=== PATIENT | male | born 1995 | race Caucasian/White ===

== ENCOUNTER 2025-01-18 12:52 | Emergency (ER) | payer OTHER, SELFPAY ==
--- NOTE | ~2025-01-18 | XR_ITS ---
CLINICAL HISTORY: CP 2 view chest x-ray Comparison: None provided Findings: The lungs are clear. Normal size heart. No acute fracture. IMPRESSION: 1. No acute findings. This document has been electronically signed by: Alessandro Gilbert MD on 01/18/2025 14:44:49
--- NOTE | 2025-01-18 12:53 | ECG_ITS ---
Test Reason : CP Blood Pressure : */* mmHG Vent. Rate : 95 BPM Atrial Rate : 95 BPM P-R Int : 144 ms QRS Dur : 78 ms QT Int : 340 ms P-R-T Axes : 70 63 42 degrees QTcB Int : 427 ms Normal sinus rhythm Normal ECG No previous ECGs available Referred By: Generic ED Physician Electronically Signed By: Juarez Jay
[2025-01-18 13:01] VITALS: BP 153/94; PULSE 98; RESP 18; TEMP 37.1; O2SAT 97; BMI 27.1
--- NOTE | 2025-01-18 13:03 | ED_ITS ---
HPI - Chest Pain General Chief Complaint: Chest Pain Stated Complaint: chest pain x 3 days Time Seen by Provider: 01/18/25 13:06 Source: patient Mode of arrival: ambulatory Limitations: no limitations History of Present Illness ED Provider: orlando mckinney np HPI narrative: Patient is a 29 year male with a reported past medical history presents to emergency department for evaluation chest pain. Is intermittent in nature described as a substernal region described as a tightness, the pain resolves after talking to someone about his feelings. admits to having increased life stressors recently and the pain comes on when he is ?thinking a lot?. Pain is nonradiating, no associated diaphoresis nausea vomiting or exacerbation on exertion. Denies past medical history/ risk factors for CAD. No recent URI symptoms, cough, neck pain, neck stiffness, dizziness or lightheadedness, headache, recent lower extremity pain or swelling, history of VTE/malignancy. Denies SI/HI. Related Data Allergies Allergy/AdvReac Type Severity Reaction Status Date / Time No Known Allergies Allergy Verified 01/18/25 13:02 Review of Systems 2 Review of Systems: Yes all other systems are reviewed and are negative [facility] Past Medical History Attestation statement: The following information was validated with the patient. Source: old records reviewed Social History Social History Smoked in Last 30 Days: No Use of substances other than those prescribed or required for medical reasons: No Advance Directives: No Advance Directives Information Provided: No Do you have a plan to hurt others: No Plan Physical Exam 2 Vital Signs: Vital Signs: Last Vital Signs Temp 98.1 F 01/18/25 14:32 Pulse 76 01/18/25 14:32 Resp 13 01/18/25 14:32 BP 132/87 01/18/25 14:32 Pulse Ox 100 01/18/25 14:32 O2 Del Method Room Air 01/18/25 14:32 BMI result Body Mass Index 27.1 Appearance: Alert.?Oriented to person, place and time. No acute distress.?Normal affect. Eyes: Pupils equal, round and reactive to light.? ENT: Pharynx normal.?? Neck: Normal inspection.? Neck supple.??No JVD. CVS: Heart sounds normal. Normal heart rate and rhythm.? Pulses normal.?? Respiratory: No respiratory distress.? Lung sounds clear to auscultation bilaterally?? Abdomen: Soft and non-tender. Normoactive bowel sounds. No pulsatile mass.?? Skin: Skin warm and dry.? Normal skin color.? ?? Extremities: No lower extremity edema.? No calf ttp? Neuro: Moves all extremities spontaneously. Sensation intact bilaterally. CN II- XII intact. No focal neuro deficits. Ambulates with normal steady gait. Course Course Course Narrative: This is an RME: Additional HPI, ROS, PE not included below will be deferred to primary provider. RME assessment and note performed by: Netta Mtz PA-C This is a 44-rbev-iva-male, with no known medical problems, who presents to the ER with a complaint of intermittent chest pain x2-3 days. Pain is nonradiating. Reporting life stressors at home. Denies etoh or drug use. VSS, pt well appearing under no acute distress.No family cardiac history. Plan: EKG, CXR, labs, further ER eval needed Reevaluation(s) Reevaluation #1: High sensitive troponin below detectable limits, ECG nonischemic. CBC is without leukocytosis anemia or thrombocytopenia. No electrolyte derangement. No ILDA. Elevated unconjugated bilirubin of 3.0, direct 0.6 with normal AST/ALT, lipase is normal. No signs of hemolytic anemia, no jaundice, benign abdominal examination, no priors available for comparison. Feels this is appropriate for outpatient follow-up with PCP/ gastroenterology for re-evaluation of serum labs and further workup Medical Decision Making Medical Decision Making MDM Narrative: Patient is a 29-year-old male with no reported past medical history who presents to the emergency department for evaluation with complaint of chest pain intermittent in nature provoked by feelings of intense stress resolve when talking to friends/family. No evidence of volume overload or shock on exam. Initial EKG without signs of acute ischemia, without evidence of STEMI. Low suspicion for acute PE (Wells low risk evidence of DVT), pneumothorax, thoracic aortic dissection, cardiac effusion / tamponade. No recent trauma or injury, no tracheal deviation, unlikely tension pneumothorax. No recent URI symptoms to suggest viral illness, pneumonia, costochondritis. No abdominal tenderness upon palpation, negative Figueroa sign, unlikely acute cholecystitis, choledocholithiasis, no fever or jaundice to suggest acute cholangitis. Denies associated acid reflux, no tenderness upon palpation over the epigastrium or left upper quadrant to suggest gastritis, no recent hematemesis history less likely to suggest PUD. Denies excessive alcohol consumption, history of diabetes, lower suspicion acute pancreatitis. this may in fact the stress/anxiety driven. Workup was obtained prior to my assumption of care including CBC to evaluate for leukocytosis/ anemia, CMP and lipase to evaluate for abnormal electrolytes /abnormal renal function/ abnormal hepatic/biliary function, EKG and troponin to evaluate for ischemia/ACS. Chest x-ray to evaluate for consolidation/ infiltrate/ mass/ pulmonary congestion, ASA, pain control and reassessment Differential Diagnosis Differential Diagnoses: The differential diagnosis associated with the presentation includes (See narrative above) Admission/Observation Consideration of admission/observation: Escalation of care including admission/observation considered (See narrative above and course narrative for further detail) Lab Data MDM Lab Attestation statement: I reviewed the patient's lab results. 01/18/25 13:28 01/18/25 13:28 Labs: Lab Results 01/18/25 Range/Units 13:28 WBC 9.9 (4.8-10.8) X10*3/uL RBC 5.69 (4.60-5.80) X10*6/uL Hgb 16.6 (14.0-18.0) g/dl Hct 47.3 (42.0-52.0) % MCV 83.1 (80.0-98.0) fL MCH 29.2 (27.0-33.0) pg MCHC 35.1 (31.0-36.0) g/dl RDW 12.7 (11.0-16.0) % Plt Count 306 (160-400) X10*3/uL MPV 11.3 (9.4-12.4) fL Immature Gran % (Auto) 0.3 (0.0-0.4) % Neut % (Auto) 77.8 H (45-73) % Lymph % (Auto) 14.7 L (20-40) % [place] % (Auto) 6.5 (2-11) % Eos % (Auto) 0.3 (0-4) % Baso % (Auto) 0.4 (0-2) % Lymph # (Auto) 1.5 (1.2-4.9) X10*3/uL [place] # (Auto) 0.7 (0.1-1.2) X10*3/uL Eos # (Auto) 0.0 (0.0-0.4) X10*3/uL Baso # (Auto) 0.0 (0.0-0.2) X10*3/uL Abs Immat Gran (auto) 0.03 (0.00-0.03) X10*3/uL Absolute Neuts (auto) 7.7 (2.0-8.3) x10*3/uL Absolute Nucleated RBC 0.000 (0.0-0.012) X10*3/uL Nucleated RBC % (auto) 0.0 (0.0-0.2) /100WBC Sodium 143 (135-145) mmol/L Potassium 3.6 (3.3-5.1) mmol/L Chloride 106 (96-108) mmol/L Carbon Dioxide 25 (22-29) mmol/L Anion Gap 16 (12-20) BUN 10 (9-16) mg/dL Creatinine 1.03 (0.5-1.4) mg/dL Estim Creat Clear Calc 107.2 Estimated GFR > 60 Random Glucose 95 (60-115) mg/dL Calcium 10.1 (8.4-10.2) mg/dL Magnesium 2.0 (1.6-2.6) mg/dL Total Bilirubin 3.0 H (0.0-1.0) mg/dL Direct Bilirubin 0.6 H (0.0-0.5) mg/dL AST 22 (5-37) U/L ALT 28 (0-40) U/L Alkaline Phosphatase 160 H (39-117) U/L Troponin I High Sens < 2.7 (<3.5-35.0) ng/L Total Protein 8.1 H (6.5-8.0) g/dL Albumin 5.1 H (3.5-5.0) g/dL Lipase 19 (8-78) U/L Influenza Type A (PCR) NEGATIVE (Negative) Influenza Type B (PCR) NEGATIVE (Negative) RSV RNA Qual (PCR) NEGATIVE (Negative) SARS-CoV-2 RNA (RT-PCR) NEGATIVE (Negative) Independent Interpretation I performed an independent interpretation of an: EKG and Plain X-Ray Interpretation: Normal sinus rhythm with a ventricular rate of 95, normal RONA, QTC 427, no ST- elevation, no T-wave inversion Radiology Impression Discussion of test interpretation with radiology: I have reviewed the radiologist's reading. Radiologist Impression: 2 view chest x-ray Comparison: None provided Findings: The lungs are clear. Normal size heart. No acute fracture. IMPRESSION: 1. No acute findings. External Record Review External record reviewed: Outpatient record Discharge Plan Discharge Clinical Impression: Chest pain, Unconjugated hyperbilirubinemia Patient Disposition: Home, Self-Care Instructions: Chest Pain (DC) Additional Instructions: Evaluation today, EKG in your blood work did not show evidence of a heart attack which is reassuring, chest x-ray does not show evidence of pneumonia or infection in the lungs that may be causing this pain that you are experiencing. Given you report of increased stress, and improvement in pain once you were able to talk to family/friends about your feelings, you may be experiencing this for secondary to a degree of anxiety/stress. You should consider engaging in a relationship with a therapist as this may be helpful for you as well, tracking at your feelings family/friends as you have been doing. You should return back to emergency department any new or worsening symptoms or concerns. Follow-up with primary care provider within 3 days. Incidentally on your blood work were found to have high bilirubin levels, this is a normal component of your bile, in some people, when this blood level is elevated without other symptoms such as nausea, vomiting, abdominal pain, food intolerance, this could be due to underlying benign conditions. This is not an emergent finding. Please contact your primary care doctor to arrange for follow up, they may consider repeating the blood levels and/or referring you to a manual machinist/hepatitis (liver specialist) for further evaluation if remaining elevated. Referrals: Physician,None [Primary Care Provider, Medical] Interventions: ED Discharge Assessment Last Done: 01/18/25 14:32 Discharge Date/Time: 01/18/25 14:33 Print Language: Lebanese
[2025-01-18 13:32] LABS: MANUAL DIFF FLAG NO
--- OUTSIDE RECORDS SUMMARY | 2025-01-18 13:32 | XMS_ITS | Clinical Summary ---
Author Organization [facility] Address [address] [place] [address] Care Team Providers Care Crap Shooter Name Role Phone Unavailable Primary Care Provider Unavailabl e Social History Tobacco Use Types Packs/Day Years Used Date Smoking Tobacco: Never Assessed Sex and Gender Information Value Date Recorded Sex Assigned at Not on file Legal Sex Male 1:41 PM EST Gender Identity Not on file Sexual Orientation Not on file Plan of Treatment Health Maintenance Due Date Last Done Comments Depression Screening 1993 HIV Screening 1993 SDOH Screening 1993 Disability Screening 1993 Alcohol/Substance Use Screening 2005 Tobacco Screening 2005 Family Planning (PISQ) 2008 Hepatitis C Screening 2011 DTaP/Tdap/Td Vaccines (1 - Tdap) 2012 Hepatitis B Vaccines (1 of 3 - 19+ 3-dose series) 2012 COVID-19 Vaccine ( - 2023-2 5 season) 2024 Influenza Vaccine (Season Ended) 2025 Zoster Vaccines (1 of 2) 2043 RSV Patients and Pa tients Aged 60 years or older (1 - 1-dose 75+ series) 2068 HIB Vaccines Aged Out No longer eligi ble based on patient's age to complete this topic HPV Vaccines Aged Out No longer eligi ble based on patient's age to complete this topic Hepatitis A Vaccines Aged Out No long er eligible based on patient's age to complete this topic IPV Vaccines Aged Out No longer eligi ble based on patient's age to complete this topic Meningococcal B Vaccine Aged Out No l onger eligible based on patient's age to complete this topic Meningococcal Vaccine Aged Out No meg joseph eligible based on patient's age to complete this topic Pneumococcal Vaccine: Pediat rics (0 to 5 Years) and At-Risk Patients (6 to 49) Years Aged Out No longer eligible b ased on patient's age to complete this topic RSV under 20 months Aged Out No longe r eligible based on patient's age to complete this topic Rotavirus Vaccines Aged Out No longer eligible based on patient's age to complete this topic
[2025-01-18 13:33] LABS: Basophils Percent Auto 0.4 % (0-2); Eosinophils Percent Auto 0.3 % (0-4); Hematocrit 47.3 % (42.0-52.0); Hemoglobin 16.6 g/dl (14.0-18.0); Imm Gran Abs Auto 0.03 X10*3/uL (0.00-0.03); Imm Gran Pct Auto 0.3 % (0.0-0.4); Lymphocytes Absolute Auto 1.5 X10*3/uL (1.2-4.9); Lymphocytes Percent Auto 14.7 % (20-40); Mean Corpuscular HGB Conc 35.1 g/dl (31.0-36.0); Mean Corpuscular Hemoglobin 29.2 pg (27.0-33.0); Mean Corpuscular Volume 83.1 fL (80.0-98.0); Mean Platelet Volume 11.3 fL (9.4-12.4); Monocytes Absolute Auto 0.7 X10*3/uL (0.1-1.2); Monocytes Percent Auto 6.5 % (2-11); Neutrophils Absolute Auto 7.7 x10*3/uL (2.0-8.3); Neutrophils Percent Auto 77.8 % (45-73); Platelet Count 306 X10*3/uL (160-400); Red Blood Count 5.69 X10*6/uL (4.60-5.80); Red Cell Distribution Width 12.7 % (11.0-16.0); White Blood Count 9.9 X10*3/uL (4.8-10.8)
[2025-01-18 13:50] LABS: Alanine Aminotransferase 28 U/L (0-40); Albumin Level 5.1 g/dL (3.5-5.0); Alkaline Phosphatase 160 U/L (39-117); Anion Gap 16 (12-20); Aspartate Amino Transferase 22 U/L (5-37); Bilirubin Direct 0.6 mg/dL (0.0-0.5); Blood Urea Nitrogen 10 mg/dL (9-16); Calcium 10.1 mg/dL (8.4-10.2); Carbon Dioxide 25 mmol/L (22-29); Chloride 106 mmol/L (96-108); Creatinine Clr Calc Pharmacy 107.2; Estimated Glomerular Filt Rate > 60; Glucose Random 95 mg/dL (60-115); Potassium 3.6 mmol/L (3.3-5.1); Sodium 143 mmol/L (135-145); Total Protein 8.1 g/dL (6.5-8.0)
[2025-01-18 13:57] LABS: Troponin-I High Sensitivity < 2.7 ng/L (<3.5-35.0)
[2025-01-18 14:00] VITALS: BP 129/82; PULSE 89; RESP 15; TEMP 36.7; O2SAT 97
[2025-01-18 14:12] LABS: Influenza A PCR NEGATIVE (Negative); Influenza B PCR NEGATIVE (Negative); Resp Syncy Virus RNA Qual PCR NEGATIVE (Negative); SARS COV2 PCR INHOUSE NEGATIVE (Negative)
[2025-01-18 14:15] LABS: Lipase 19 U/L (8-78)
[2025-01-18 14:32] VITALS: BP 132/87; PULSE 76; RESP 13; TEMP 36.7; O2SAT 100
== END 2025-01-18 14:33 | disposition home or self-care (01) ==
PROVIDERS: Nurse Practitioner Family; Physician Assistant Medical; Emergency Provider Emergency Medicine
DX: R07.89 Other chest pain (principal); E80.6 Other disorders of bilirubin metabolism; Z03.818 Encounter for observation for suspected exposure to other biological agents ruled out; Z72.89 Other problems related to lifestyle; Z63.9 Problem related to primary support group, unspecified
CPT/HCPCS: 0241U; 71046; 80048; 80076; 83690; 83735; 84484; 85025; 93005; 99283; 99284

== ENCOUNTER → 2025-01-18 12:53 | Outpatient (BNV) | payer OTHER, SELFPAY | PROVIDERS: Emergency Provider Emergency Medicine; Visit Provider Internal Medicine Cardiovascular Disease | DX: R07.2 Precordial pain (principal) | CPT/HCPCS: 93010 ==

== ENCOUNTER → 2025-01-18 13:05 | Outpatient (BNV) | payer OTHER, SELFPAY | PROVIDERS: Emergency Provider Emergency Medicine; Visit Provider Nuclear Medicine | DX: R07.9 Chest pain, unspecified (principal) | CPT/HCPCS: 71046 ==

== ENCOUNTER 2025-05-09 18:48 | Emergency (ER) | payer MEDICAID, SELFPAY ==
--- NOTE | ~2025-05-09 | XR_ITS ---
CLINICAL HISTORY: back pain 3 views lumbar spine Comparison: None provided Findings: Loss of normal lumbar lordosis. No acute fractures or dislocation. No significant degenerative change. IMPRESSION: No acute findings. This document has been electronically signed by: Mariam Thompson MD on 05/09/2025 20:09:43
[2025-05-09 19:18] VITALS: BP 139/85; PULSE 70; RESP 18; TEMP 36.8; O2SAT 98; BMI 27.0
--- NOTE | 2025-05-09 19:19 | ED_ITS ---
HPI - Back Pain/Injury General Chief Complaint: Back Pain/Injury Stated Complaint: Back pain Time Seen by Provider: 05/09/25 20:44 Source: patient Limitations: no limitations History of Present Illness ED Provider: Lavonne Qiu PA-C HPI Narrative: 29-year-old male who is otherwise healthy presents with back pain x3 weeks. Pain over lower back, denies trauma. pain is nonradiating, worse with movement. Denies weakness of lower extremities, urinary retention or bowel incontinence. No paresthesia. 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 Patient also states he has had intermittent fevers with a sore throat. Denies cough or cold symptoms. Patient has been trying uaeu-[id number]-gqqgoxi remedies to alleviate his back discomfort without relief of symptoms. Related Data Previous Rx's ?Medication ?Instructions ?Recorded ketorolac 10 mg tablet 10 mg PO Q6H PRN pain #20 ta bs 05/09/25 methocarbamol 750 mg tablet 1,500 mg (2 x 750 mg) PO Q 8H PRN 05/09/25 pain, moderate #24 tabs Allergies Allergy/AdvReac Type Severity Reaction Status Date / Time No Known Allergies Allergy Verified 05/09/25 19:24 Review of Systems Review of Systems: Yes all other systems are reviewed and are negative Constitutional: Constitutional: Denies fatigue and Denies fever(s) ENT: Reports sore throat Cardiovascular: Cardiovascular: Denies chest pain Gastrointestinal: Gastrointestinal: Denies abdominal pain Musculoskeletal: Musculoskeletal: Reports back pain, Denies muscle weakness, Denies numbness, Denies radiating pain into limb and Denies tingling Neurologic: Denies numbness and Denies tingling Endocrine: Endocrine: Denies fatigue [facility] Past Medical History Attestation statement: The following information was validated with the patient. Social History Social History Advance Directives: No Advance Directives Information Provided: No Physical Exam Vital Signs: Vital Signs: Last Vital Signs Temp 98.2 F 05/09/25 19:18 Pulse 70 05/09/25 19:18 Resp 18 05/09/25 19:18 BP 139/85 05/09/25 19:18 Pulse Ox 98 05/09/25 19:18 O2 Del Method Room Air 05/09/25 19:18 BMI result Body Mass Index 27.0 Const: Other: Alert well appearing Orientation/consciousness: patient oriented x3 HEENT: Other: opiate not erythematous, uvula midline, no trismus no drooling no swelling inferior to the jawline no sublingual fluctuance Resp: Effort & Inspection: normal respiratory effort Cardio: Other: normal peripheral perfusion Skin: Other: warm dry no rash Neuro: General: patient oriented x3, gait normal, no focal motor deficits and CN's II-XI intact bilaterally Extrem: Other: strength 5/5 bilateral lower extremities Psych: Other: cooperative Course Course Course Narrative: This is an RME: Additional HPI, ROS, PE not included below will be deferred to primary provider. RME assessment and note performed by: Netta Mtz PA-C This is a 24-itgc-vxu-male who presents to the ER with complaints of back pain x 3 weeks, sore throat and congestion. No urinary symptoms. Reporting subjective fevers. No sick contacts. Plan: Covid, flu, strep, xr lumbar spine Medical Decision Making Medical Decision Making MDM Narrative: 29-year-old male who is otherwise healthy presents with back pain x3 weeks. Pain over lower back, denies trauma. pain is nonradiating, worse with movement. Denies weakness of lower extremities, urinary retention or bowel incontinence. No paresthesia. 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 Patient also states he has had intermittent fevers with a sore throat. Denies cough or cold symptoms. Patient has been trying jrtg-khc-[id number] remedies to alleviate his back discomfort without relief of symptoms. 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 In regard to the back pain, a lumbar x-ray was obtained it is completely normal. There were no compression fractures, He also has no red flag signs symptoms concerning for cord compression. We will treat for a musculoskeletal strain. I have independently reviewed the following tests: Labs: viral panel negative str Lumbar x-ray:Findings: Loss of normal lumbar lordosis. No acute fractures or dislocation. No significant degenerative change. IMPRESSION: No acute findings. Differential Diagnosis Differential Diagnoses: The differential diagnosis associated with the presentation includes see medical decision-making Admission/Observation Consideration of admission/observation: Escalation of care including admission/observation considered not applicable Lab Data MDM Lab Attestation statement: I reviewed the patient's lab results. Labs: Lab Results 05/09/25 Range/Units 19:31 COVID-19 (SALOME) Negative (Negative) COVID-19 Clin Com See Note Influenza Type A (RONALD) Negative (Negative) Influenza Type B (RONALD) Negative (Negative) Influenza A & B Note See Note S. pyogenes GrpA RONALD Negative (Negative) Radiology Impression Discussion of test interpretation with radiology: I have reviewed the radiologist's reading. Discharge Plan Discharge Clinical Impression: Strain of lumbar region, Sore throat, Acute viral syndrome, Constipation Patient Disposition: Home, Self-Care Instructions: Constipation (ED), Pharyngitis (ED), Low Back Strain (ED), Viral Syndrome (ED) Additional Instructions: the x-ray of the lumbar spine is completely normal, you were incidentally found to be constipated. See home care instructions. Use avwg-mzq-lgxpimz Colace this is a stool softener twice a day. Use iqyz-kfv-buzpewe MiraLax, 2 to 3 times a day, until you begin having large volume bowel movements. In regard to the back pain you can use the ketorolac with food this is an anti-inflammatory take it as directed. Use the methocarbamol as needed, this is a muscle relaxant it will cause drowsiness, do not drive or operate machinery while taking the medication. In regard to your sore throat this is likely viral, the viral panel and strep throat screen was negative. Warm saltwater gargles we will help to alleviate your discomfort. Follow up with your primary care provider as needed. Prescriptions: New ketorolac 10 mg tablet 10 mg PO Q6H PRN (Reason: pain) Qty: 20 0RF Rx Instructions: maximum total duration of 5 days from all oral, intranasal, or parenteral formulations. The patient received an intramuscular dose of Toradol here in the emergency room methocarbamol 750 mg tablet 1,500 mg PO Q8H PRN (Reason: pain, moderate) Qty: 24 0RF Stand Alone Forms: Work/School Release Print Language: Marshallese
[2025-05-09 19:50] LABS: IDNOW Serial# 08D9AD1C; Strep A Nucleic Acid Negative (Negative)
[2025-05-09 19:51] LABS: COVID-19 Test Negative (Negative); IDNOW Serial# 55D5AD1C
[2025-05-09 19:55] LABS: IDNOW Serial# 6674DD1D; Influenza B2 Negative (Negative)
[2025-05-09 21:51] VITALS: BP 140/82; PULSE 74; RESP 18; TEMP 36.8; O2SAT 98
== END 2025-05-09 21:53 | disposition home or self-care (01) ==
PROVIDERS: Physician Assistant Medical; Emergency Provider Emergency Medicine
DX: B34.9 Viral infection, unspecified (principal); M54.50 Low back pain, unspecified; J02.9 Acute pharyngitis, unspecified; K59.00 Constipation, unspecified; Z11.52 Encounter for screening for COVID-19; Z79.899 Other long term (current) drug therapy
CPT/HCPCS: 72100; 87502; 87635; 87651; 96372; 99283; 99284; J1885

== ENCOUNTER → 2025-05-09 19:21 | Outpatient (BNV) | payer MEDICAID, SELFPAY | PROVIDERS: Emergency Provider Emergency Medicine; Visit Provider Radiology Diagnostic Radiology | DX: M54.9 Dorsalgia, unspecified (principal) | CPT/HCPCS: 72100 ==